=== PATIENT | male | born 2000 | race Caucasian/White ===

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

== ENCOUNTER 2019-12-07 05:27 | Emergency (ER) | payer OTHER, SELFPAY ==
[2019-12-07 05:29] VITALS: BP 117/78; PULSE 90; RESP 18; TEMP 36.7; O2SAT 96; BMI 19.5
--- NOTE | 2019-12-07 05:32 | RAD_ITS ---
STUDY: X-RAY - RIGHT HAND REASON FOR EXAM: Male, 19 years old. PUNCHED A BRICK A COUPLE DAYS AGO -- C/O PAIN RT 3RD MCP JOINT TECHNIQUE: 3 view(s) of the hand. COMPARISON: Radiograph 08/04/2014. FINDINGS: The bone mineralization is preserved. There is mild soft tissue edema. On the lateral view there is punctate 1.3 mm ossific density within the ventral soft tissues overlying the metacarpal phalangeal joints. RAD/Hand Min 3 Views IMPRESSION: Soft tissue edema No displaced fractures On the lateral view there is punctate 1.3 mm ossific density within the ventral soft tissues overlying the metacarpal phalangeal joints which most likely represents accessory ossicle, benign soft tissue ossification or old avulsion injury. Small acute avulsion fracture less likely.. Electronically Signed: Humberto Sherman, at 6:00 EDT Tel , Service support ,
--- NOTE | 2019-12-07 05:32 | ED.VIS.UPPEX ---
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 [id number]. No loss of function. No other injuries. - Past Medical History (1) Exercise-induced asthma Status: Chronic Past Medical History - Allergies and Home Meds Allergies/Adverse Reactions: Allergies SEASONAL Adverse Reaction (Uncoded 12/07/19 05:28) Other Primary Care Physician: Tristan Flowers DO [Primary Care Provider] - As Needed Lives: With Family Smoking Status: Never smoker Review of Systems Eyes: Reports: - - itching, redness, irritation R eye Musculoskeletal: Reports: Extremity Pain. Denies: Back pain Skin: Denies: Rash, Wounds Neurological: Denies: Headache, Weakness, Numbness Allergy: Reports: Uticaria. Denies: Swelling of the mouth, Swelling of the tongue Physical Exam Vital Signs/Narrative: Vital Signs Temp Pulse Resp BP Pulse Ox 12/07/19 05:29 98.1 F 90 18 117/78 96 General: Well nourished, Well developed, - - Well-appearing no distress Head: Normocephalic, Atraumatic Extremeties: Patient has mild tenderness with localized swelling over the dorsum of the MCPJ of the right middle finger. There appears to be some fluid over the joint, causing swelling, and there is an associated vibratory sensation that is palpable with moving the skin around on top. No deformity. Full range of motion, extensor, FDP, FDS all intact. Skin: Normal color, No rash, No Trauma - Skin intact right hand Neurological: Alert, Oriented x3, Cranial nerves II-XII grossly intact, Normal Strength, Normal Sensation, Normal Gait Psychological: Normal affect, Normal Mood Diagnostic/Tx/Re-eval - Medical Decision Making Sensation with palpation made the patient suspect he was feeling fragments of bone and that it was broken. My suspicion of this was low, given his mobility. X-rays confirm that it is not broken. Reassured, supportive care advised, I do not think he needs nikolas tape. Patient and mother were also asking questions about his allergies. Right now, he is doing landscaping and cutting grass for work, and he has exercise-induced asthma that is mildly exacerbated during this, and he is also getting areas of skin that breakout in itchy rash when he is cutting grass. He is on Flovent, taking Zyrtec daily, as well as an inhaled corticosteroid and allergy eyedrops for allergic conjunctivitis that his doctor gave him recently. I will add a trial 2-week course of Singulair for him to try as well and follow-up with his doctor. ED Disposition - Plan for ED Patient: Disposition: Home or Assisted Living Diagnosis: Contusion of right middle finger, Allergy to plant Instructions: ED CONTUSION Finger Prescriptions: Montelukast [Singulair] 10 mg PO DAILY #14 tab Transmission Status: Pending to [facility] Referrals: Tristan Flowers, [Primary Care Provider] - As Needed
[2019-12-07 05:59] VITALS: BP 117/78; PULSE 90; RESP 18
== END 2019-12-07 05:59 | disposition home or self-care (01) ==
PROVIDERS: Emergency Provider Emergency Medicine; PCP Family Medicine
DX: S60.031A Contusion of right middle finger without damage to nail, initial encounter (principal); L50.6 Contact urticaria; W22.8XXA Striking against or struck by other objects, initial encounter; Y93.89 Activity, other specified; Y92.9 Unspecified place or not applicable; J45.990 Exercise induced bronchospasm
CPT/HCPCS: 73130; 99282

== ENCOUNTER 2021-10-28 20:36 | Emergency (ER) | payer OTHER, SELFPAY ==
[2021-10-28 20:36] VITALS: BP 149/99; PULSE 109; RESP 18; TEMP 35.8; O2SAT 99; BMI 19.0
--- NOTE | 2021-10-28 20:44 | ED.RN ---
supervisor lead [employer] called and says we can do the covid test here in [place], even though he is an employee.
--- NOTE | 2021-10-28 22:38 | EX.ED.DYSGE1 ---
HPI History of Present Illness Chief Complaint: Cellulitis Detail of Chief Complaint: Left great toe pain Informant: patient Narrative Narrative: Patient presents the emergency department complaint of left patient states he has had pain for about a week and a half. Patient also ran it over with a weighted cart accidentally x2 over the last week. Patient believes he may have an ingrown toenail. Patient also started today with a mild cough as well as some body aches. Patient's had a runny nose. Patient's had low-grade temp to 99. He denies any COVID exposures. He is not vaccinated against COVID. Patient requesting a COVID test. Prior similar symptoms: No PFSH PFSH Medical History (Updated 10/28/21 @ 23:[address] Jnenifer Aguilera, DO) Asthma COVID-19 Home Medications Multi Vitamin 1 cap PO/SL DAILY 10/28/21 [History Last Taken Unknown] cephalexin 500 mg capsule 500 mg PO Q6 #40 CAPSULES 10/28/21 [Rx Last Taken Unknown] montelukast 10 mg tablet (Singulair) 10 mg PO DAILY 10/28/21 [History Last Taken Unknown] Allergy/AdvReac Type Severity Reaction Status Date / Time SEASONAL AdvReac Other Uncoded 10/28/21 20:38 Social History Smoking Status: Never smoker ROS ROS ED Review of Systems ROS Unobtainable: other Constitutional Constitutional ED: Reports fever(s) and lethargy; Denies chills, sweats or weight loss Eyes Eyes: Denies blurry vision, change in vision or diplopia ENT ENT ED: Denies rhinorrhea or sore throat Cardiovascular Cardiovascular: Reports chest pain and racing heartbeat; Denies orthopnea Respiratory/Chest Respiratory/Chest: Reports cough, dyspnea and dyspnea on exertion; Denies orthopnea or sputum Gastrointestinal Gastrointestinal: Denies abdominal pain, diarrhea, nausea or vomiting Genitourinary Genitourinary ED: Denies dysuria, hematuria or urinary frequency Musculoskeletal Musculoskeletal: Reports myalgias and other Details: Left great toe pain ; Denies arthralgias, back pain or neck pain Integumentary Denies abscess, Abrasions or rash Neurologic Neurologic: Denies headache(s) or weakness Psychiatric Psychiatric: Denies anxiety, depression or suicidal thoughts Endocrine Endocrinology: Denies polydipsia, polyphagia or polyuria Hematologic/Lymphatic Hematologic/Lymphatic: Denies easy bleeding, easy bruising or lymphadenopathy Allergic/Immunologic Allergic/Immunologic ED: Denies mouth swelling, tongue swelling or urticaria EXAM Physical Exam Const Vital Signs: 10/28/21 20:36 10/28/21 22:49 10/28/21 22:49 Temperature 96.5 F L 98.5 F 98.5 F Temperature Source Temporal Oral Oral Pulse Rate 109 H 70 Respiratory Rate 18 16 Blood Pressure 149/99 H 124/63 H Blood Pressure Mean 115 83 Pulse Ox 99 100 Oxygen Delivery Method Room Air Room Air Positive well nourished and well developed General Appearance ED: well developed and NAD HEENT Reports TM's clear and moist mucous membranes normocephalic and atraumatic; Negative for trauma or tenderness Tympanic Membrane ED: Yes TM's clear Eyes PERRL and EOMs intact bilaterally General Eye ED: Negative for pale conjunctiva or scleral icterus Neck no lymphadenopathy, supple and no JVD General: Negative for tenderness Chest Wall inspection of chest normal and palpation of chest normal Chest: Negative for tenderness Resp normal respiratory effort and clear to auscultation bilaterally Effort and Inspection: Negative for respiratory distress or pain with movement Auscultation: Negative for rhonchi, wheezes or diminished lung sounds Cardio regular rate, regular rhythm, S1 normal heart sound, S2 normal heart sound and no murmurs Peripheral Pulses: pulses 2+ throughout GI normal to inspection, nondistended, normoactive bowel sounds, soft to palpation, non-tender, non-distended and no masses Back/Spine no CVA tenderness and no thoracic nor lumbar tenderness Extremity Extremity Narrative: Left great toe-patient does have an ingrown toenail on the medial aspect of the great toe. No significant cellulitic changes noted. He is neurovascular intact. There is no ecchymosis or bruising noted. General Extremety ED: Negative for edema General Extremity: Negative for edema Neuro oriented x3, CN's II-XII intact bilaterally, no sensory deficits noted and gait normal Sensorium / Orientation: awake, alert, oriented to person, oriented to place and oriented to time Motor Exam: strength 5/5 throughout and strength abnormal Psych mental status grossly normal Skin no rashes or lesions noted and no wounds MDM MDM MDM Narrative Medical decision making narrative: Patient had a COVID test that was negative. Patient understands that he could be negative early on but I recommended that he repeat a test in 2 days at home. Patient also was offered to have a partial resection of his nail to resolve the issue with the ingrown nail. Patient states that he had trauma to that nail about 9 months ago where the entire nail came off and he thinks maybe it is growing abnormally into his tissue. Patient agreed to have the partial resection. Procedures Other Procedures Procedure(s): Left great toenail partial resection-patient had a digital block 1% lidocaine total of 8 cc used. Using curved hemostats I was able to lift the nail off the nail bed and resected with scissors. Nailbed was irrigated with saline. Clean dressing applied. Patient tolerated procedure well. Discharge Plan Triage Chief Complaint: Cellulitis Other Complaint: Lower Extremity Injury ED Provider: Jennifer Aguilera Dx/Rx/DC Orders Clinical Impression: Ingrown toenail, Viral URI Instructions: ED Ingrown Toenail, Excised, ED URI, Viral, No Abx (Adult) Prescriptions: New cephalexin [cephalexin] 500 MG capsule 500 mg PO Q6 Qty: 40 0RF No Action Multi Vitamin 1 cap PO/SL DAILY montelukast [Singulair] 10 MG tablet 10 mg PO DAILY Primary Care Provider: Tristan Flowers Referrals: Tristan Flowers DO [Primary Care Provider] - 3-5 Days Disposition Disposition: Home, Self Care
[2021-10-28 22:49] VITALS: BP 124/63; PULSE 70; RESP 16; TEMP 36.9; O2SAT 100
[2021-10-28] MEDS: Lidocaine 1% (20 ml mdv) 20 ML Vial 8 ML INFILT (22:53)
[2021-10-28] MEDS: Cephalexin 250 MG Capsule 500 MG PO (23:30)
[2021-10-28 23:37] VITALS: BP 123/73; PULSE 70; RESP 18; TEMP 36.7; O2SAT 100
== END 2021-10-28 23:39 | disposition home or self-care (01) ==
PROVIDERS: Emergency Provider Emergency Medicine; PCP Family Medicine; Visit Provider Emergency Medicine
DX: L60.0 Ingrowing nail (principal); J45.909 Unspecified asthma, uncomplicated; Z86.16 Personal history of COVID-19; Z28.310 Unvaccinated for COVID-19; J06.9 Acute upper respiratory infection, unspecified
CPT/HCPCS: 11730; 11760; 87811; 99284